=== PATIENT | male | born 1975 | race Caucasian/White ===

== ENCOUNTER → 2016-09-15 | Outpatient (CLI) | payer OTHER ==
[~2016-09-15] MED LIST: AMOXICILLIN500 MG PO; ANAPROX DS550 MG PO; BACTRIM DS 8001 TA1 PO; BACTROBAN2% TP; CLARITIN10 MG PO; CLEOCIN HCL150 MG PO; CLINDAMYCIN HC300 MG PO; DICLOFENAC POTA50 MG PO; FLEXERIL10 MG PO; FLEXERIL5 MG PO; GABAPENTIN600 MG PO; HYDROCODONE BIT1 T11 PO; IBU-8800 MG PO; MEDROL DOSEPAK4 MG PO; MOTRIN800 MG PO; NAPROSYN500 MG PO; NAPROXEN375 MG PO; NKHM; PARAFON FORTE500 MG PO; PEN-VK500 MG PO; PERCOCET 325 MG1 TA5 PO; PREDNICOT20 MG PO; RESTORIL30 MG PO; ROBAXIN750 MG PO; TRAMADOL HCL50 MG PO; TRIMOX500 MG PO; ULTRAM50 MG PO; VICODIN 5/500 505 MG PO; VICODIN 500 MG-1 TAB PO; ZANAFLEX4 M1 PO
== END | disposition home or self-care (01) ==
LOC: CT 09-09 13:00
DX: R10.9 Unspecified abdominal pain (principal)

== ENCOUNTER 2019-04-19 02:56 | Emergency (ER) | payer OTHER ==
[~2019-04-19] VITALS: Ht 175.2 cm; Wt 73.5 kg
== END 2019-04-19 04:22 | disposition home or self-care (01) ==
LOC: ED 02:56
DX: M25.512 Pain in left shoulder (principal); R07.81 Pleurodynia; V49.9XXA Car occupant (driver) (passenger) injured in unspecified traffic accident, initial encounter; Y93.89 Activity, other specified; Y92.89 Other specified places as the place of occurrence of the external cause; Y99.8 Other external cause status

== ENCOUNTER 2019-11-24 12:37 | Emergency (ER) | payer BC ==
[~2019-11-24] VITALS: Ht 175.2 cm; Wt 74.8 kg
[2019-11-24] MEDS ORDERED: DIFLUCAN150 MG PO (13:14)
== END 2019-11-24 14:01 | disposition home or self-care (01) ==
LOC: ED 12:37
DX: B37.0 Candidal stomatitis (principal); J02.9 Acute pharyngitis, unspecified

== ENCOUNTER → 2020-01-30 | Outpatient (CLI) | payer BC ==
[~2020-01-30] MED LIST changes: +DIFLUCAN150 MG PO
== END | disposition home or self-care (01) ==
LOC: RAD 12:14
DX: M25.512 Pain in left shoulder (principal)

== ENCOUNTER 2022-03-09 21:02 | Emergency (ER) | payer OTHER | END 2022-03-09 21:24 | disposition home or self-care (01) | LOC: ED 21:02 | DX: L25.5 Unspecified contact dermatitis due to plants, except food (principal) ==

== ENCOUNTER 2024-02-27 08:47 | Emergency (ER) | payer OTHER ==
[~2024-02-27] VITALS: Ht 175.2 cm; Wt 72.6 kg
[2024-02-27] MEDS ORDERED: Dexamethasone Sodium Phospha 20 MG/5 ML VIAL IM ONE (09:00)
[2024-02-27] MEDS ORDERED: PREDNISONE20 M1 PO (09:02)
== END 2024-02-27 09:05 | disposition home or self-care (01) ==
LOC: ED 08:47
DX: L25.9 Unspecified contact dermatitis, unspecified cause (principal); Z98.890 Other specified postprocedural states